=== PATIENT | female | born 1955 | race Caucasian/White ===

== ENCOUNTER 2018-09-18 09:22 | Inpatient (IN) ==
--- NOTE | 2018-08-19 07:55 | History & Physical Report ---
Date of Service August 19, 2018 Date of Surgery: 09-18-18 Assessment & Plan (1) Tricompartment osteoarthritis of right knee: Risks and benefits of procedure discussed in detail today, patient would like to proceed with a Right total knee replacement at [facility] as scheduled. will obtain medical clearance prior to surgery as well as obtain PATs at [facility]. Will place on ASA 81mg po bid x 1 month post op, f/u 2 weeks post op for routine post-operative care and x-ray, sooner if having any problems. will make arrangements for HHPT at the time of discharge. At this point in time, has failed conservative measures and would like to proceed with surgical intervention. History of Present Illness Chief Complaint: Right knee pain Primary Care Provider: NO PCP Ms Mendez is a 63 year old female who complains of right knee pain, presents for pre-op evaluation prior to Right total knee replacement on 09/18/18 at [facility]. She presents with pain and stiffness on the right side. In addition to pain, she complains of crepitus and decreased range of motion on the right side. She states that the symptoms have been chronic non-traumatic. The symptoms occur constantly with intermittent worsening. Currently the patient states that the symptoms are moderate. The pain is described as aching and dull. The symptoms are aggravated by ascending stairs, daily activities, descending stairs, first steps while awake and weight bearing. Currently the pain is a 5/10 and worst is 8/10. Caitie states that the symptoms are relieved by no specific activity. Prior NSAIDs include Celebrex and Ibuprofen. She has been treated with Pt. and has had injections by Dr. Russo on the right and left side equally. Allergies Allergy/AdvReac Type Severity Reaction Status Date / Time No Known Allergies Allergy Verified 08/13/18 14:04 Home Medications Home Medications Medication Instructions Recorded Confirmed Type celecoxib [Celebrex] 200 mg PO QAM 08/13/18 08/13/18 History cholecalciferol (vitamin D3) 2,000 unit PO QAM 08/13/18 08/13/18 History [Vitamin D3] metoprolol succinate 50 mg PO QAM 08/13/18 08/13/18 History multivitamin 1 tab PO QAM 08/13/18 08/13/18 History rosuvastatin [Crestor] 10 mg PO QAM 08/13/18 08/13/18 History sertraline 150 mg PO QAM 08/13/18 08/13/18 History valsartan-hydrochlorothiazide 1 tab PO QAM 08/13/18 08/13/18 History Past Med/Surg History Medical History Adrenal cyst BEING MONITORED PAST 11 YRS THRU PCP Depression Diverticular disease HX Hyperlipidemia Hypertension Osteoarthritis Surgical History History of colonoscopy X 2 Hx of breast biopsy BENIGN-UNDER LOCAL ANESTHESIA Family History Father Family history of diabetes mellitus Family hx of colon cancer Uncle Family hx of colon cancer Uncle Family hx of colon cancer Social History Preferred Language: Korean Communication Ability: Effective 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 Beliefs That Will Affect Care: None Current Living Situation: Spouse Other Information That Helps Us Care for You: No Feels Safe at Home: Yes Safety Concerns: Feels Safe At This Time Smoking Status: Never smoker Hx Alcohol Use: Yes Hx Substance Use: No Review of Systems All systems reviewed & are unremarkable except as noted in HPI & below Constitutional: no fever, no chills and no sweats Respiratory: no cough and no dyspnea Cardiovascular: no chest pain, no dyspnea and no orthopnea Gastrointestinal: no nausea and no vomiting Musculoskeletal: as per Subjective / HPI Integumentary: no rash and no lesions Physical Exam Vital Signs (Past 24 Hours): Ht: 5ft 3inches Wt: 79.4kg BP: 132/82 Pulse: 74 Constitutional: WD/WN, vitals as above no acute distress Respiratory: normal respiratory effort, lungs clear to auscultation no respiratory distress, no labored breathing and does not use accessory muscles Cardiovascular: RRR, no murmur, no edema Gastrointestinal (Abdomen): normal bowel sounds, soft, nontender, no hepatosplenomegaly Musculoskeletal: Right Knee Exam: Caitie ambulates with a limp, overall neutral alignment on physical exam, there is no erythema, no atrophy or ecchymosis, mild effusion, diffuse tenderness to the knee greatest over medial compartment, positive crepitation with motion, hailey's negative, Coreen's - lateral positive, Coreen's - medial positive, Posterior drawer- negative, anterior drawer negative, valgus stress negative, varus stress negative, no extensor lag, pain with active range of motion, Range of motion 0/3/110. No pain with active/passive ROM of ankle. Lower extremity strength normal. Lower extremity neuro-vascular is normal Skin: no rashes, warm and dry Results & Data Diagnostic Findings Right Knee X-ray from 06-21-18 showing advanced tricompartmental degenerative changes to the right knee, narrowing of the medial compartment and patello- femoral joint with patellar spurring noted, findings showing joint space narrowing with osteophyte formation and subchondral sclerosis noted. overall varus alignment. no acute bony pathology noted.
--- NOTE | 2018-08-19 11:28 | PAT Medication Instructions ---
Medication Instructions Date of Service August 19, 2018 Home Medications celecoxib [Celebrex] 200 mg PO QAM cholecalciferol (vitamin D3) 2,000 unit PO QAM metoprolol succinate 50 mg PO QAM multivitamin 1 tab PO QAM rosuvastatin [Crestor] 10 mg PO QAM sertraline 150 mg PO QAM valsartan-hydrochlorothiazide 1 tab PO QAM ASK your surgeon for instructions celecoxib [Celebrex] 200 mg PO QAM DO NOT take the morning of surgery cholecalciferol (vitamin D3) 2,000 unit PO QAM multivitamin 1 tab PO QAM valsartan-hydrochlorothiazide 1 tab PO QAM Take morning of surgery With a small sip of water, OTHERWISE NOTHING TO EAT OR DRINK AFTER MIDNIGHT: metoprolol succinate 50 mg PO QAM rosuvastatin [Crestor] 10 mg PO QAM sertraline 150 mg PO QAM Other Notes If you have any questions please call us at [phone] or [phone] or [phone] or [phone]
--- NOTE | 2018-08-19 11:28 | Anesthesiology Consultation ---
Date of Service August 19, 2018 Assessment & Plan (1) Encounter for pre-operative examination: Chart Review Chart Review: Acceptable Risk for Surgery and Patient seen in Pre Admission Testing Teaching & Discussion Instructed NPO after midnight before surgery, except medications with 15 cc of water. Medication instructions provided according to the PAT guidelines. History Surgery Operation Date: 09/18/18 08:10 Proposed Procedures p Right Total Knee Arthroplasty - Rubens Nielsen DO Height/Weight Height: 5 ft 3 in Weight: 82.6 kg Allergies Allergy/AdvReac Type Severity Reaction Status Date / Time No Known Allergies Allergy Verified 08/13/18 14:04 Medications Home Medications Medication Instructions Recorded Confirmed Last Taken celecoxib [Celebrex] 200 mg PO QAM 08/13/18 08/13/18 Unknown cholecalciferol (vitamin D3) 2,000 unit PO QAM 08/13/18 08/13/18 Unknown [Vitamin D3] metoprolol succinate 50 mg PO QAM 08/13/18 08/13/18 Unknown multivitamin 1 tab PO QAM 08/13/18 08/13/18 Unknown rosuvastatin [Crestor] 10 mg PO QAM 08/13/18 08/13/18 Unknown sertraline 150 mg PO QAM 08/13/18 08/13/18 Unknown valsartan-hydrochlorothiazide 1 tab PO QAM 08/13/18 08/13/18 Unknown Past Medical History Medical History Adrenal cyst BEING MONITORED PAST 11 YRS THRU PCP Depression Diverticular disease HX DIVERTICULITIS, WAS ADMITTED AND TX WITH ABX. Hyperlipidemia Hypertension Obesity Osteoarthritis Past Family History Family History Father Family history of diabetes mellitus Family hx of colon cancer Uncle Family hx of colon cancer Uncle Family hx of colon cancer Past Surgical History Surgical History History of colonoscopy X 2 Hx of breast biopsy BENIGN-UNDER LOCAL ANESTHESIA Past Anesthesia History No Hx of Anesthesia Complications and No Family Hx of Anesthesia Complications History of PONV No Motion Sickness Screening History of Motion Sickness: No Social History Smoking Status: Never smoker Do You Dip or Chew Tobacco: No Hx Alcohol Use: Yes Alcohol type: hard liquor alcohol intake frequency: a few times a month Hx Substance Use: No substance use type: does not use Exercise / Class Metabolic Activity II 4-5 Yardwork/Stairs/Walk up hill (Denies CP or SOB with stairs) Review of Systems Pt denies any recent chest pain, shortness of breath, palpitations, cough, fever or URI. Physical Exam Vital Signs BP: 107/65 P: 70bpm SPO2: 95% RA T: 97.5 F R: 18 ENMT Mouth: + dental restorations (few implants and crowns), + chipped teeth (bottom R side) and + loose teeth (Upper R canine, has felt mildly loose x 10 yrs) Thyromental Distance: > or= 3.5 Finger Breadths (4) Mallampati Class: II Neck normal visual inspection; neck extension not limited Respiratory normal respiratory effort Auscultation: lungs clear to auscultation bilaterally Cardiovascular Rate/Rhythm: regular rate and regular rhythm Heart Sounds: no murmur Vessels: no carotid bruit Extremities: no edema Testing Electrocardiogram Date: 08/19/18 Findings: + NSR @ (65) Nonspecific ST abnormality. Chest X-Ray Date: 08/19/18 Findings: + NAD Laboratory Results 08/19/18 12:15 08/19/18 12:15 Blood Type A Negative 08/19/18 12:15 Antibody Screen NEGATIVE 08/19/18 12:15 PT 10.6 Seconds (9.0-12.0) 08/19/18 12:15 INR 1.0 (0.9-1.1) 08/19/18 12:15 APTT 26.2 Seconds (21.0-31.0) 08/19/18 12:15 Hemoglobin A1c 5.4 % (4.5-5.6) 08/19/18 12:15 Urine Color Yellow 08/19/18 12:15 Urine Appearance Clear (Clear) 08/19/18 12:15 Urine pH 5.5 (4.5-7.5) 08/19/18 12:15 Ur Specific [place] 1.024 (1.000-1.030) 08/19/18 12:15 Urine Protein Negative (Negative) 08/19/18 12:15 Urine Glucose (UA) Negative (Negative) 08/19/18 12:15 Urine Ketones Negative (Negative) 08/19/18 12:15 Urine Nitrite Negative (Negative) 08/19/18 12:15 Ur Leukocyte Esterase 1+ (Negative) H 08/19/18 12:15 Urine WBC (Auto) 1-5 /hpf (0-5) 08/19/18 12:15 Urine RBC (Auto) 0-4 /hpf (0-4) 08/19/18 12:15 U Hyaline Cast (Auto) 1-5 /lpf (0-5) 08/19/18 12:15 U Epithel Cells (Auto) >30 /lpf (0-5) H 08/19/18 12:15 Urine Bacteria (Auto) Negative (Negative) 08/19/18 12:15
[2018-08-19 12:44] LABS: Basophils # (auto) 0.02 K/uL (0-0.2); Basophils % (auto) 0.3 %; Eosinophils # (auto) 0.11 K/uL (0-0.5); Eosinophils % (auto) 1.6 %; Hematocrit (blood only) 41.5 % (37-47); Hemoglobin 14.4 g/dL (12.0-16.0); Immature Granulocytes # (auto) 0.02 K/uL (0.00-0.02); Immature Granulocytes % (auto) 0.3 %; Lymphocytes # (auto) 1.67 K/uL (1.2-3.4); Lymphocytes % (auto) 24.3 %; Mean Corpuscular Hgb Conc 34.7 g/dL (32-36); Mean Corpuscular Volume 85.4 fL (80-100); Monocytes # (auto) 0.23 K/uL (0.11-0.59); Monocytes % (auto) 3.4 %; Neutrophils # (auto) 4.81 K/uL (1.4-6.5); Neutrophils % (auto) 70.1 %; Platelet Count 218 K/uL (130-400); RDW Coefficient of Variation 13.5 % (11.5-14.5); RDW Standard Deviation 41.8 fL (36.4-46.3); Red Blood Count 4.86 M/uL (4.2-5.4); White Blood Count 6.86 K/uL (4.8-10.8)
--- NOTE | 2018-08-19 12:55 | XRay Report ---
XR chest Pre-admission PA/Lat CLINICAL HISTORY: 63 years-old Female presenting with preoperative assessment. TECHNIQUE: PA and lateral views of the chest were obtained. COMPARISON: None. FINDINGS: Atherosclerosis of the aortic arch. Cardiac silhouette normal in size. Lungs and pleural spaces clear . Scoliosis and degenerative changes of the thoracic spine. Upper abdomen normal. IMPRESSION: 1. No acute cardiopulmonary disease. Electronically signed by: Erickson Browning M.D. 08/19/2018 12:54 PM
[2018-08-19 12:59] LABS: Estimated Average Glucose 108 mg/dl; Hemoglobin A1C 5.4 % (4.5-5.6)
[2018-08-19 13:02] LABS: Partial Thromboplastin Time 26.2 Seconds (21.0-31.0); Prothrombin Time 10.6 Seconds (9.0-12.0)
[2018-08-19 13:24] LABS: Appearance Urine Clear (Clear); Bacteria Urine Automated Negative (Negative); Bilirubin Urine Negative (Negative); Blood Urine Negative (Negative); Color Urine Yellow; Epithelial Cell Urine Auto >30 /lpf (0-5); Glucose Urine UA Negative (Negative); Ketones Urine Negative (Negative); Leukocyte Esterase Urine 1+ (Negative); Nitrite Urine Negative (Negative); Protein Urine Negative (Negative); RBC Urine Automated 0-4 /hpf (0-4); Specific Gravity Urine 1.024 (1.000-1.030); Urobilinogen Urine Negative (Negative); pH Urine 5.5 (4.5-7.5)
[2018-08-19 13:51] LABS: Albumin Level 3.9 gm/dl (3.4-5.0); BUN Creatinine Ratio 28.9 (10-20); Calcium 9.4 mg/dl (8.5-10.1); Creatinine Clr Calc Pharmacy 71.4 ml/min; Est GFR (African American) 89.7; Est GFR (Non-African American) 77.4; Potassium 3.4 mmol/L (3.5-5.1)
[~2018-09-18 09:22] MED LIST: ACETAMINOPHEN 500 MG TAB PO SCH; BUPIVACAINE 0.5 % 5 MG/1 ML PF 10ML VIAL ONE; CEFAZOLIN 2000MG 2,000 MG/15 ML SYR IV SCH; CeleBREX 200 MG CAP PO SCH; FAMOTIDINE 20 MG TAB PO SCH; GABAPENTIN 300 MG PO SCH; LR 500ML BOLUS, THEN 15ML/HR IV SCH; ROPIVACAINE 0.5% 5 MG/ML 30 ML VIAL ONE; ROPIVACAINE 0.5% HCL/PF 150 MG, BUPIVACAINE 0.5% MPF 30 ML, EPINEPHrine 30MG/30ML (OR U... INFIL SCH; TRANEXAMIC ACID 1,000 MG **IV Intra-op IV SCH; TRANEXAMIC ACID 1,000 MG **IV Pre-op IV SCH; dexAMETHasone 4 MG TAB PO SCH
[2018-09-18] MEDS ORDERED: fentaNYL citrate 100 MCG/2 ML VIAL ONE (10:14)
[2018-09-18] MEDS ORDERED: MIDAZOLAM HCL 1 MG/ML 2ML VIAL ONE ×2 (10:14)
--- NOTE | 2018-09-18 10:14 | History & Physical Bridge Note ---
Date of Service September 18, 2018 History & Physical Bridge Note I have examined the patient, reviewed the History & Physical and in the interval since the performance of the History & Physical I have noted the following changes of clinical significance: no changes noted
[2018-09-18] MEDS ORDERED: ONDANSETRON INJ 2 MG/ML 2 ML VIAL IV PRN ×2 (11:59→15:34)
[2018-09-18] MEDS ORDERED: HYDROmorphone INJ 1 MG/ML SYRINGE IV PRN (11:59)
[2018-09-18] MEDS ORDERED: ePHEDrine sulfate 50 MG/ML AMP IV PRN (11:59)
[2018-09-18] MEDS ORDERED: ATROPINE SULFATE 0.1 MG/ML 10ML SYR IV PRN (11:59)
[2018-09-18] MEDS ORDERED: KETOROLAC 30 MG/ML VIAL IV PRN (11:59)
[2018-09-18] MEDS ORDERED: PHENYLEPHRINE 100MCG/ML 5ML SYR IV PRN (11:59)
[2018-09-18] MEDS ORDERED: POVIDONE-IODINE OP SOLN 30 ML BTL ONE (12:10)
[2018-09-18] MEDS ORDERED: ORTHO JOINT ANESTHETIC ONE (12:10)
[2018-09-18] MEDS ORDERED: BACITRACIN INJ 50,000 UNIT VIAL ONE (12:10)
[2018-09-18] MEDS ORDERED: PROPOFOL IV EMULSION 10 MG/ML 20 ML VIAL IV ONE ×3 (12:56→13:10)
--- NOTE | 2018-09-18 13:28 | Operative Report ---
Post Operative Report Pre & Post Diagnosis Operation Date: 09/18/18 11:50 Pre-Op Diagnosis: RIGHT KNEE OSTEOARTHRITIS Post-Op Diagnosis: RIGHT KNEE OSTEOARTHRITIS Procedure Operation Date: 09/18/18 11:50 Actual Procedures p Right Total Knee Arthroplasty(Right) utilizing [employer] journey 2 patient matched total knee arthroplasty size 4 femur 3 tibia 12 polyethylene 32 oval patella- Rubens Nielsen DO Surgeon Rubens Nielsen DO Shovel Logger Eugenio KAHN Estimated Blood Loss 5 Findings Consistent with Post-Op Diagnosis Patient presents with severe end-stage tricompartmental degenerative joint disease of the right knee no response to conservative management she is failed attempts at conservative management including physical therapy anti- inflammatories relative rest activity modification times surgery is noted evidence of eburnated bone [id number] subchondral cystic changes marginal osteophytes. Specimens Bone and cartilage Complications none Disposition Accompanied Patient To Recovery: No Disposition: Recovery Room Indications Patient presents severe end-stage tricompartmental degenerative disease right knee no response to conservative management including physical therapy anti- inflammatories relative rest activity modification corticosteroid injections she presents for right total knee arthroplasty Description of Procedure After proper prepping and draping of the Right lower extremity anterior midline incision was made over the region of the extensor extensor mechanism after meticulous hemostasis was obtained and maintained in subcutaneous tissues a medial parapatellar incision was made The patella was subluxed lateralward the medial lateral gutter were cleaned from any hypertrophic synovitis and scar tissue of the distal femoral block was placed and the distal femoral osteotomy cut was made subsequently the chamfers anterior and posterior osteotomy cuts were made utilizing the 4-in-1 block the tibia was subsequently subluxed anteriorward medial and ateral meniscal remnants were excised in their entirety remnants of the anterior and posterior cruciate ligaments were excised in their entirety excellent exposure of the proximal tibia was obtained the tibial osteotomy guide was placed on the proximal tibial osteotomy cut was made once again the knee was irrigated with copious amounts of sterile saline solution the patella was subsequently everted lateralward thickened scar tissue around the patella was removed the patella was subsequently cut utilizing a freehand technique and was drilled prepared for final preparation and placement of patella socially flexion-extension gaps were checked and the equal and symmetric trials were placed to the appropriate femoral and tibial trials with poly-spacer being placed for equal flexion and extension gaps and full range of motion including extension to 0 and flexion to 140 the trial components after having been taken to recovery range of motion was subsequently removed meticulous he mostasis was obtained and maintained subsequently a knee block injection of joint cocktail including ropivacaine 0.5% 150 mg. Bupivacaine 0.5% epinephrine 1-200,030 mL's toradol 30 mg dexamethasone 4 mg ketamine 10 mg clonidine 100 micrograms normal saline solution 30 mg was infiltrated into the soft tissues of the posterior knee medial lateral gutters and periosteal synovium special attention was paid to protect neurovascular structures at all times subsequently trial components having been removed the knee was irrigated with sterile saline solution. debris was removed the proximal tibia was subsequently prepared and was made ready for the placement of the tibial component tibial component was also cemented and tamped into position the femoral component was subsequently placed and cemented in the position the patellar component was subsequently cemented in position because hemostasis once again obtained and maintained wound having been thoroughly irrigated with debridement and debridement lavage was performed as well as a medial parapatellar incision closed with #1 Vicryl in interrupted fashion subcutaneous was closed with #2 Vicryl skin was closed with skin clips. PA-C was necessary for prepping and drapping as well as wound closure of deep fascia Sub cutaneous tissue and skin and was necessary for the case. A sterile compressive dressing was placed patient was taken to recovery in stable condition of report dictated by Morales I attest to the content of the Intraoperative Record and any orders documented therein. Any exceptions are noted below. I attest to the content of the Intraoperative Record and any orders documented therein. Any exceptions are noted below.
--- NOTE | 2018-09-18 14:34 | Anesthesiology Progress Note ---
Date of Service September 18, 2018 Anesthesia Post Procedure Vital Signs Vital Signs: Temp Pulse Pulse Resp BP Pulse Ox 09/18/18 14:25 71 18 117/66 97 09/18/18 14:16 36.6 C 82 18 121/75 94 09/18/18 10:02 36.6 C 74 20 153/84 H 95 Transfer of Care Handoff Completed per policy Notes Mental Status: alert / awake / arousable Patient Amnestic to Procedure: Yes Nausea / Vomiting: adequately controlled Pain: adequately controlled Airway Patency, RR, SpO2: stable & adequate BP & HR: stable & adequate Hydration State: stable & adequate Anesthetic Complications: no major complications apparent
--- NOTE | 2018-09-18 14:41 | XRay Report ---
XR knee RT 2V routine CLINICAL HISTORY: Surgical Post Op postoperative evaluation COMPARISON: None. DISCUSSION: Anatomic alignment post total right knee arthroplasty. Good contact between prosthetic an d the Bone. Expected soft tissue postoperative change. IMPRESSION: Anatomic alignment post total right knee arthroplasty. The above report was generated using voice recognition software. It may contain grammatical, syntax or spelling errors. Electronically signed by: Sunil Herrmann M.D. 09/18/2018 2:40 PM
[2018-09-18] MEDS ORDERED: MAGNESIUM HYDROXIDE SUSP 30 ML UDC PO PRN (15:34)
[2018-09-18] MEDS ORDERED: BISACODYL 10 MG SUPP PR PRN (15:34)
[2018-09-18] MEDS ORDERED: NALOXONE HCL 0.4 MG/1 ML VIAL/CARP IV PRN (15:34)
[2018-09-18] MEDS: SODIUM CHLORIDE 0.9% 1000ML 1,000 ML IV SCH (20:21)
[2018-09-18] MEDS: DOCUSATE SODIUM 100 MG CAP PO SCH (21:36)
[2018-09-18] MEDS: OXYCODONE HCL IR 5 MG TAB (IMMEDIATE RELEASE) PO PRN (21:36)
[2018-09-18] MEDS: ACETAMINOPHEN 500 MG TAB PO SCH (21:36)
[2018-09-18] MEDS: SENNA 8.6 MG TAB PO SCH (21:36)
[2018-09-18] MEDS: ASPIRIN 81 MG ECTAB PO SCH (21:40)
[2018-09-18] MEDS: CEFAZOLIN 2000MG 2,000 MG/15 ML SYR IV SCH (21:43)
[2018-09-19] MEDS: SODIUM CHLORIDE 0.9% 1000ML 1,000 ML IV SCH (01:44)
[2018-09-19] MEDS: ACETAMINOPHEN 500 MG TAB PO SCH ×3 (05:05→21:38)
[2018-09-19] MEDS: CEFAZOLIN 2000MG 2,000 MG/15 ML SYR IV SCH (05:05)
[2018-09-19 08:12] LABS: Hemoglobin 12.7 g/dL (12.0-16.0); Mean Corpuscular Hgb Conc 34.3 g/dL (32-36); Mean Corpuscular Volume 85.5 fL (80-100); Mean Platelet Volume 10.4 fL (7.4-10.4); Platelet Count 229 K/uL (130-400); RDW Coefficient of Variation 13.4 % (11.5-14.5); RDW Standard Deviation 41.7 fL (36.4-46.3); Red Blood Count 4.33 M/uL (4.2-5.4); White Blood Count 13.06 K/uL (4.8-10.8)
[2018-09-19 08:49] LABS: BUN Creatinine Ratio 23.2 (10-20); Calcium 8.7 mg/dl (8.5-10.1); Creatinine Clr Calc Pharmacy 73.7 ml/min; Est GFR (African American) 93.9; Potassium 3.9 mmol/L (3.5-5.1)
[2018-09-19] MEDS: DOCUSATE SODIUM 100 MG CAP PO SCH ×2 (08:53→20:37)
[2018-09-19] MEDS: ROSUVASTATIN CALCIUM 10 MG TAB PO SCH (08:53)
[2018-09-19] MEDS: VALSARTAN 80 MG TAB PO SCH (08:53)
[2018-09-19] MEDS: hydroCHLOROthiazide 25 MG TAB PO SCH (08:54)
[2018-09-19] MEDS: ASPIRIN 81 MG ECTAB PO SCH ×2 (08:54→20:37)
[2018-09-19] MEDS: CHOLECALCIFEROL 1,000 UNITS TAB PO SCH (08:55)
[2018-09-19] MEDS: MULTIVITAMIN TAB PO SCH (08:55)
[2018-09-19] MEDS: METOPROLOL SUCC 50MG EXT REL TAB PO SCH (08:55)
[2018-09-19] MEDS: SERTRALINE HCL 100 MG TABLET PO SCH (08:56)
[2018-09-19] MEDS: OXYCODONE HCL IR 5 MG TAB (IMMEDIATE RELEASE) PO PRN ×4 (09:01→21:38)
--- NOTE | 2018-09-19 09:51 | Progress Note ---
DATE: 09/19/2018 SUBJECTIVE: The patient is postop day 1 status post right total knee arthroplasty. Currently, she is ambulating in her room with a walker independently with a physical therapist close by. She states that she is not having any pain at this time and has been having good pain control. She does state that her right foot feels a little weak with dorsiflexion, but that is improving since last night. She denies shortness of breath, chest pain, lightheadedness or nausea and vomiting. OBJECTIVE: Dressings are clean, dry and intact. Toes are mobile. She does have some weakness with her dorsiflexion, but has strong plantar flexion. She is able to dorsiflex the right great toe, but is slightly weak. Calves are soft, nontender and she had 125 mL of drainage out from her Hemovac over the previous shift. ASSESSMENT: 1. Postop day 1 right total knee arthroplasty. 2. Slight foot drop likely due to intraoperative injection that is slowly resolving. PLAN: Continue PT, OT protocol, weightbearing as tolerated. Continue DVT prophylaxis with aspirin b.i.d., SCDs and JESSICA segal. Continue current pain regimen at this time and we will follow her foot drop for now, although it seems to be resolving. If she is progressing quite well, we will see how she is feeling this afternoon for question of discharge to home versus tomorrow and how her foot drop is progressing.
[2018-09-19] MEDS: HYDROmorphone INJ 0.5 MG/0.5 ML SYR IV PRN (20:32)
[2018-09-19] MEDS: SENNA 8.6 MG TAB PO SCH (20:37)
[2018-09-20] MEDS: OXYCODONE HCL IR 5 MG TAB (IMMEDIATE RELEASE) PO PRN ×3 (04:36→12:55)
[2018-09-20] MEDS: ACETAMINOPHEN 500 MG TAB PO SCH ×2 (06:10→12:56)
[2018-09-20] MEDS: HYDROmorphone INJ 0.5 MG/0.5 ML SYR IV PRN (06:10)
--- NOTE | 2018-09-20 06:45 | Orthopedic Progress Note ---
Date of Service September 20, 2018 Assessment & Plan (1) Status post total right knee replacement: POD #1 s/p Right TKA pt/ot dvt proph with JESSICA/SCD/ASA plan for d/c home with HHPT when stable, recheck after PT today added Celebrex, was having increased pain did have Dilaudid this am which seemed to help some. Subjective POD #2 s/p Right TKA denies CP/SOB denies F/Chills pain currently 5/10 foot drop has resolved Review of Systems Constitutional: no fever, no chills and no sweats Physical Exam Physical Exam: Vital Signs Temp 36.6 C 09/19/18 23:32 Pulse 78 09/19/18 23:32 Resp 14 09/19/18 23:32 BP 128/78 09/19/18 23:32 Pulse Ox 94 09/19/18 23:32 Intake & Output 09/19/18 09/19/18/08/06 06:59 18:59 06:59 Intake Total 1141.667 / 2761.66 7 400 / 450 50 / 450 Output Total 1250 / 1265 110 / 235 125 / 235 Balance -108.333 / 1496.66 7 290 / 215 -75 / 215 Intake: IV 941.667 / 2061.667 Nss 1000ML 1,0 00 ml @ 100 mls/ 941.667 / 941.667 hr IV .Q10H SC H Rx#:[id number] Oral 200 / 200 400 / 450 50 / 450 Output: Urine 1050 / 1050 Drain Output 200 / 210 110 / 235 125 / 235 Right Knee Hem ovac 200 / 210 110 / 235 125 / 235 Other: # Unmeasured Voi ds 1 1 1 Musculoskeletal: Right knee: NVDI, calf SNT, negative gokul sign. DP palpable, able to wiggle toes/ankle movement without difficulty. prinea dressing clean dry and intact. expected post-operative bruising noted. foot drop has resolved Results & Data Vital Signs (Past 12 Hours) Vital Signs Temp Pulse Resp BP Pulse Ox 09/19/18 23:32 36.6 C 78 14 128/78 94
[2018-09-20] MEDS: VALSARTAN 80 MG TAB PO SCH (08:26)
[2018-09-20] MEDS: hydroCHLOROthiazide 25 MG TAB PO SCH (08:26)
[2018-09-20] MEDS: CHOLECALCIFEROL 1,000 UNITS TAB PO SCH (08:27)
[2018-09-20] MEDS: ROSUVASTATIN CALCIUM 10 MG TAB PO SCH (08:27)
[2018-09-20] MEDS: DOCUSATE SODIUM 100 MG CAP PO SCH (08:27)
[2018-09-20] MEDS: SERTRALINE HCL 100 MG TABLET PO SCH (08:27)
[2018-09-20] MEDS: ASPIRIN 81 MG ECTAB PO SCH (08:28)
[2018-09-20] MEDS: MULTIVITAMIN TAB PO SCH (08:28)
[2018-09-20] MEDS: METOPROLOL SUCC 50MG EXT REL TAB PO SCH (08:28)
[2018-09-20] MEDS ORDERED: CeleBREX 200 MG CAP PO SCH (09:00)
--- NOTE | 2018-09-25 01:42 | Discharge Summary ---
DATE OF ADMISSION: 09/18/2018 DATE OF DISCHARGE: 09/20/2018 DISCHARGE DIAGNOSIS: Degenerative joint disease, right knee. SECONDARY DIAGNOSES: History of adrenal cyst, depression, diverticular disease, hyperlipidemia, hypertension, osteoarthritis. CONSULTS: None. COMPLICATIONS: None. PROCEDURES: Right total knee arthroplasty performed by Dr. Nielsen on 09/18/2018. BRIEF HISTORY: As dictated in history and physical. HOSPITAL SUMMARY: The patient was admitted on the above date and had the above-noted surgery performed, which she tolerated well. On the first postoperative day, she was ambulating in her room with a walker independently with the physical therapist close by stated that she was not having any pain at the time and had been having good pain control. She did state that her right foot felt a little weak with dorsiflexion, but that it was improving since the previous evening. She denies shortness of breath, chest pain or lightheadedness or nausea, vomiting. Dressings clean, dry and intact. Toes were mobile. Neurovascular intact. She did have some weakness with her dorsiflexion, but has strong plantar flexion. She was able to dorsiflex the right great toe, but is somewhat weak. Calves were soft, nontender and she had 125 mL of drains out from her Hemovac. She was started on physical therapy protocol and continued on DVT prophylaxis and pain management. She was rechecked later in the afternoon after her PT session and she was having increasing pain and was going to stay 1 more day. By her second postoperative day, she had no complaints and denied chest pain or shortness of breath or chills. Pain was fairly well controlled. Foot drop had resolved. Vital signs were stable. She was afebrile. She was progressing with physical therapy and remaining stable. Her Prineo dressing was clean, dry and intact. Toes were mobile. Neurovascular intact. Calves were soft, nontender and it was felt she could be discharged to home on 09/20/2018. For further review, please see chart. LABORATORY AND X-RAY DATA: As per chart. DISCHARGE INSTRUCTIONS: The patient was discharged to home in satisfactory condition on 09/20/2018. DIET: Regular. ACTIVITY: Weightbearing as tolerated right lower extremity with walker. Follow TK instruction sheets and special care instructions as noted. Follow up with Dr. Nielsen in 2 weeks. The patient to call for appointment if one has not been made for you. DISCHARGE MEDICATIONS: Acetaminophen 1000 mg p.o. q.8 hours, aspirin 81 mg p.o. b.i.d. for 30 days, cefadroxil 500 mg p.o. b.i.d., Celebrex 200 mg p.o. b.i.d., oxycodone 5-10 mg p.o. q.6 hours p.r.n. and sennosides 17.2 mg p.o. at bedtime. Resume home meds as listed and stop taking previous Celebrex dosage.
== END 2018-09-20 13:41 | disposition home health service (06) | DRG 470 ==
LOC: ASU 09:22 → 3E 14:24